=== PATIENT | female | born 1960 | race Caucasian/White ===

== ENCOUNTER → 2016-03-13 | Outpatient (CLI) | payer OTHER ==
[2016-03-13 15:07] VITALS: BP 128/69; PULSE 83; TEMP 97.4; BMI 27.8
--- NOTE | 2016-03-13 16:21 | FL ---
EXAMINATION TYPE: FL barium swallow DATE OF EXAM: 03/13/2016 4:14 PM LAP BANDING LIMITED ESOPHAGRAM: CLINICAL HISTORY: History of lap band placed 7 years ago with dysphasia and vomiting for one week. P atient had failed removed today prior to procedure. TECHNIQUE: Limited esophagram is performed utilizing 2-3 oz of liquid ez paque. A total of 27 second s of fluoroscopic time was utilized during procedure. COMPARISON: CT abdomen and pelvis July 27, 2013. 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 Lap band position is stable from prior CT. Cholecystectomy cl ips are redemonstrated. The patient then drank oral contrast. There is good flow of contrast along the course of the esophagu s. There is good flow of contrast along the course of the lap band, there is no evidence of contrast extravasation to suggest leak. There is no lap band slippage appreciated. IMPRESSION: No evidence of lap band slippage or significant obstruction.
--- NOTE | 2016-03-13 16:31 | P.HPBAR ---
Bariatric H&P - History & Physicial H&P Date: 03/13/16 History & Physicial: Visit/CC: follow up visit Patient initial contact: Initial weight: Initial weight in pounds: Height: 5 ft 3 in Initial BMI: Last weight: Current weight: 71.169 kg Current weight in pounds: 156.90 Current BMI: 27.8 [place] body weight (based on NIH guidelines): 52.163 kg Excess body weight loss: The patient is a 55 year-old F who presents for Bariatric Assessment. The patient presents for lab band follow. She has not been seen in several years. She states that she is at dysphagia and vomiting for approximately one week. Past Medical History Additional Past Medical History / Comment(s): diverticulitis, back pain History of Any Multi-Drug Resistant Organisms: None Reported Past Surgical History: Bariatric Surgery, Cholecystectomy, Hysterectomy Additional Past Surgical History / Comment(s): lap band, chronic back pain - lumbar Past Psychological History: No Psychological Hx Reported Smoking Status: Never smoker Past Alcohol Use History: Occasional Past Drug Use History: None Reported Surgical - Exam Vital Signs Temp Pulse BP 97.4 F L 83 128/69 03/13/16 15:04 03/13/16 15:04 03/13/16 15:04 - General well developed, well nourished, no distress - Eyes PERRL - ENT normal pinna - Neck no masses - Respiratory normal expansion - Cardiovascular Rhythm: regular - Abdomen Abdomen: soft, non tender Bariatric Assessment & Plan Plan: The patient's LAP-BAND was empty. 5 mL remove her band. She'll be scheduled for esophagram Bariatric Checklist Checklist: Plan: Checklist: EGD: 1. Hiatal hernia: 2. H. Pylori: HgbA1c: Vitamin D: Smoking: Never smoker Primary care physician referral: dr nichole Psychiatry clearance: Cardiology clearance: Sleep study: Diet journal: VTE risk score: VTE risk level: Rehab needs at discharge:
== END | disposition home or self-care (01) ==
LOC: BARWHC3 14:05
PROVIDERS: ATTEND Surgery
DX: Z48.815 Encounter for surgical aftercare following surgery on the digestive system (principal); Z98.84 Bariatric surgery status; R13.10 Dysphagia, unspecified; R11.10 Vomiting, unspecified; Z68.27 Body mass index [BMI] 27.0-27.9, adult
CPT/HCPCS: 74220; 99202

== ENCOUNTER → 2016-03-22 | Outpatient (CLI) | payer OTHER | END | disposition home or self-care (01) | LOC: RADMRIMAIN 07:02 | PROVIDERS: ATTEND Physical Medicine & Rehabilitation | DX: Z53.9 Procedure and treatment not carried out, unspecified reason (principal) ==

== ENCOUNTER → 2016-04-03 | Outpatient (CLI) | payer OTHER ==
[2016-04-03 13:07] VITALS: BP 126/71; PULSE 82; RESP 16; TEMP 98.4; BMI 29.2
--- NOTE | 2016-04-03 13:39 | P.HPBAR ---
Bariatric H&P - History & Physicial H&P Date: 04/03/16 History & Physicial: Visit/CC: Band Adj Patient initial contact: Initial weight: 71.016 kg Initial weight in pounds: 156.00 Height: 5 ft 3 in Initial BMI: 27.7 Last weight: Current weight: 74.899 kg Current weight in pounds: 165.00 Current BMI: 29.2 [place] body weight (based on NIH guidelines): 52.163 kg Excess body weight loss: The patient is a 55 year-old F who presents for Bariatric Assessment. Patient is requesting a fill of her LAP-BAND. She had her LAP-BAND empty her last visit. She currently feels hungry. She's gained 9 pounds. Review of Systems Constitutional: Reports as per HPI Past Medical History Additional Past Medical History / Comment(s): diverticulitis, back pain History of Any Multi-Drug Resistant Organisms: None Reported Past Surgical History: Bariatric Surgery, Cholecystectomy, Hysterectomy Additional Past Surgical History / Comment(s): lap band, chronic back pain - lumbar Past Psychological History: No Psychological Hx Reported Smoking Status: Never smoker Past Alcohol Use History: Occasional Past Drug Use History: None Reported Surgical - Exam Vital Signs Temp Pulse Resp BP 98.4 F 82 16 126/71 04/03/16 13:05 04/03/16 13:05 04/03/16 13:05 04/03/16 13:05 - General well developed, no distress - Eyes PERRL - ENT normal pinna - Neck no masses - Respiratory normal expansion - Cardiovascular Rhythm: regular - Abdomen Abdomen: soft, non tender Bariatric Assessment & Plan Plan: The patient's lap band was adjusted. She had 3 mL added to her LAP-BAND. She was able to drink water without difficulty. She will follow-up in one month. Bariatric Checklist Checklist: Plan: Checklist: EGD: 1. Hiatal hernia: 2. H. Pylori: HgbA1c: Vitamin D: Smoking: Never smoker Primary care physician referral: dr nichole Psychiatry clearance: Cardiology clearance: Sleep study: Diet journal: VTE risk score: VTE risk level: Rehab needs at discharge:
== END | disposition home or self-care (01) ==
LOC: BARWHC3 12:33
PROVIDERS: ATTEND Surgery
DX: Z48.815 Encounter for surgical aftercare following surgery on the digestive system (principal); Z68.29 Body mass index [BMI] 29.0-29.9, adult; Z98.84 Bariatric surgery status
CPT/HCPCS: 99212

== ENCOUNTER → 2016-04-10 | Outpatient (CLI) | payer OTHER ==
[2016-04-10 15:13] VITALS: BP 119/70; PULSE 74; RESP 14; TEMP 98.1; BMI 29.2
--- NOTE | 2016-04-10 15:34 | P.HPBAR ---
Bariatric H&P - History & Physicial H&P Date: 04/10/16 History & Physicial: Visit/CC: band fill Patient initial contact: Initial weight: 71.016 kg Initial weight in pounds: 156.56 Height: 5 ft 3 in Initial BMI: 27.7 Last weight: Current weight: 74.752 kg Current weight in pounds: 164.80 Current BMI: 29.2 [place] body weight (based on NIH guidelines): 52.163 kg Excess body weight loss: The patient is a 55 year-old F who presents for Bariatric Assessment. The patient is requesting a fill. She currently feels hungry. She feels limited restriction. Past Medical History Additional Past Medical History / Comment(s): diverticulitis, back pain History of Any Multi-Drug Resistant Organisms: None Reported Past Surgical History: Bariatric Surgery, Cholecystectomy, Hysterectomy Additional Past Surgical History / Comment(s): lap band, chronic back pain - lumbar Past Psychological History: No Psychological Hx Reported Smoking Status: Never smoker Past Alcohol Use History: Occasional Past Drug Use History: None Reported Surgical - Exam Vital Signs Temp Pulse Resp BP 98.1 F 74 14 119/70 04/10/16 15:08 04/10/16 15:08 04/10/16 15:08 04/10/16 15:08 - General well developed, no distress - Eyes PERRL - ENT normal pinna - Neck no masses - Respiratory normal expansion - Cardiovascular Rhythm: regular - Abdomen Abdomen: soft, non tender Bariatric Assessment & Plan Plan: The patient's lap band was adjusted. She had 1 mL added to her LAP-BAND. She' ll follow-up in one month for recheck. Bariatric Checklist Checklist: Plan: Checklist: EGD: 1. Hiatal hernia: 2. H. Pylori: HgbA1c: Vitamin D: Smoking: Never smoker Primary care physician referral: dr nichole Psychiatry clearance: Cardiology clearance: Sleep study: Diet journal: VTE risk score: VTE risk level: Rehab needs at discharge:
== END | disposition home or self-care (01) ==
LOC: BARWHC3 14:10
PROVIDERS: ATTEND Surgery
DX: Z48.815 Encounter for surgical aftercare following surgery on the digestive system (principal); Z98.84 Bariatric surgery status; Z68.29 Body mass index [BMI] 29.0-29.9, adult
CPT/HCPCS: 99212

== ENCOUNTER → 2016-05-01 | Outpatient (CLI) | payer OTHER ==
[2016-05-01 15:14] VITALS: BP 137/65; PULSE 75; RESP 16; TEMP 98; BMI 29.1
--- NOTE | 2016-05-01 15:14 | P.HPBAR ---
Bariatric H&P - History & Physicial H&P Date: 05/01/16 History & Physicial: Visit/CC: Patient initial contact: Initial weight: 71.016 kg Initial weight in pounds: Height: Initial BMI: Last weight: Current weight: Current weight in pounds: Current BMI: [place] body weight (based on NIH guidelines): Excess body weight loss: The patient is a 55 year-old F who presents for Bariatric Assessment. The patient's complaints of hunger. She wishes to have a lap band fill. Past Medical History Additional Past Medical History / Comment(s): diverticulitis, back pain History of Any Multi-Drug Resistant Organisms: None Reported Past Surgical History: Bariatric Surgery, Cholecystectomy, Hysterectomy Additional Past Surgical History / Comment(s): lap band, chronic back pain - lumbar Past Psychological History: No Psychological Hx Reported Smoking Status: Never smoker Past Alcohol Use History: Occasional Past Drug Use History: None Reported Surgical - Exam - General well developed, no distress - Eyes PERRL - ENT normal pinna - Neck no masses Bariatric Assessment & Plan Plan: The patient LAP-BAND was adjusted. She had 0.5 mL added to her LAP-BAND. She was able to water without difficulty. She currently has 4.5 mL in her band. She will follow-up in one month. Bariatric Checklist Checklist: Plan: Checklist: EGD: 1. Hiatal hernia: 2. H. Pylori: HgbA1c: Vitamin D: Smoking: Never smoker Primary care physician referral: dr nichole Psychiatry clearance: Cardiology clearance: Sleep study: Diet journal: VTE risk score: VTE risk level: Rehab needs at discharge:
== END | disposition home or self-care (01) ==
LOC: BARWHC3 13:22
PROVIDERS: ATTEND Surgery
DX: Z48.815 Encounter for surgical aftercare following surgery on the digestive system (principal); Z98.84 Bariatric surgery status
CPT/HCPCS: 99212

== ENCOUNTER → 2016-05-09 | Outpatient (CLI) | payer OTHER ==
--- NOTE | 2016-05-10 13:05 | MM ---
Reason for exam: screening (asymptomatic). Last mammogram was performed 3 years and 11 months ago. History: Patient is postmenopausal. Taking estrogen for 8 years 9 months beginning at age 39. Physical Findings: A clinical breast exam by your physician is recommended on an annual basis and results should be correlated with mammographic findings. MG Screening Mammo w CAD Bilateral CC and MLO view(s) were taken. Prior study comparison: May 29, 2012, CAD bilateral diagnostic mammogram. March 13, 2011, bilateral digital screening mammo w/CAD. There are scattered fibroglandular densities. Finding: There is a subtle 6 mm equal density (isodense), indistinct irregular mass located 10 cm from the nipple in the 2 o'clock upper outer quadrant of the left breast. New finding since May 29, 2012 and March 13, 2011. ASSESSMENT: Incomplete: need additional imaging evaluation, BI-RAD 0 RECOMMENDATION: Special view mammogram of the left breast. If lesion persists on supplemental views, image directed ultrasound is recommended. [facility] will attempt to contact patient to return for supplemental views and ultrasound if indicated.
== END | disposition home or self-care (01) ==
LOC: RADMAMWWP 07:43
PROVIDERS: ATTEND Family Medicine
DX: Z12.31 Encounter for screening mammogram for malignant neoplasm of breast (principal)

== ENCOUNTER → 2016-05-11 | Outpatient (CLI) | payer OTHER ==
--- NOTE | 2016-05-11 09:46 | MM ---
Reason for exam: additional evaluation requested from abnormal screening. Last mammogram was performed less than 1 month ago. History: Patient is postmenopausal. Taking estrogen for 8 years 9 months beginning at age 39. Physical Findings: Nurse did not find any significant physical abnormalities on exam. MG Work Up Mamm w CAD LT CC and MLO view(s) were taken of the left breast. Prior study comparison: May 09, 2016, bilateral MG screening mammo w CAD. May 29, 2012, CAD bilateral diagnostic mammogram. The breast tissue is almost entirely fat. There is no discrete abnormality including area of concern. These results were verbally communicated with the patient and result sheet given to the patient on 05/11/16. ASSESSMENT: Negative, BI-RAD 1 RECOMMENDATION: Return to routine screening mammogram schedule for both breasts.
== END | disposition home or self-care (01) ==
LOC: RADMAMWWP 08:29
PROVIDERS: ATTEND Family Medicine
DX: R92.8 Other abnormal and inconclusive findings on diagnostic imaging of breast (principal)

== ENCOUNTER → 2016-05-29 | Outpatient (CLI) | payer OTHER ==
[2016-05-29 14:40] VITALS: BP 137/73; PULSE 81; TEMP 98; BMI 29.5
--- NOTE | 2016-05-29 15:07 | P.HPBAR ---
Bariatric H&P - History & Physicial H&P Date: 05/29/16 History & Physicial: Visit/CC: lap band fill Patient initial contact: Initial weight: 71.016 kg Initial weight in pounds: 156.56 Height: 5 ft 3 in Initial BMI: 27.7 Last weight: Current weight: 75.75 kg Current weight in pounds: 167.00 Current BMI: 29.5 [place] body weight (based on NIH guidelines): 52.163 kg Excess body weight loss: The patient is a 55 year-old F who presents for Bariatric Assessment. The patient requesting a fill of her LAP-BAND. She currently feels hungry. Past Medical History Additional Past Medical History / Comment(s): diverticulitis, back pain History of Any Multi-Drug Resistant Organisms: None Reported Past Surgical History: Bariatric Surgery, Cholecystectomy, Hysterectomy Additional Past Surgical History / Comment(s): lap band, chronic back pain - lumbar Past Psychological History: No Psychological Hx Reported Smoking Status: Never smoker Past Alcohol Use History: Occasional Past Drug Use History: None Reported Surgical - Exam Vital Signs Temp Pulse BP 98.0 F 81 137/73 05/29/16 14:37 05/29/16 14:37 05/29/16 14:37 - General well developed, no distress - Eyes PERRL - ENT normal pinna - Neck no masses - Cardiovascular Rhythm: regular - Abdomen Abdomen: soft, non tender Bariatric Assessment & Plan Plan: The patient LAP-BAND was adjusted. She had 0.2 mL added to her LAP-BAND. She currently is 4.7 mL in the band. She'll follow-up in one month. Bariatric Checklist Checklist: Plan: Checklist: EGD: 1. Hiatal hernia: 2. H. Pylori: HgbA1c: Vitamin D: Smoking: Never smoker Primary care physician referral: dr nichole Psychiatry clearance: Cardiology clearance: Sleep study: Diet journal: VTE risk score: VTE risk level: Rehab needs at discharge:
== END | disposition home or self-care (01) ==
LOC: BARWHC3 13:42
PROVIDERS: ATTEND Surgery
DX: Z09 Encounter for follow-up examination after completed treatment for conditions other than malignant neoplasm (principal); Z98.84 Bariatric surgery status
CPT/HCPCS: 99212

== ENCOUNTER → 2016-09-18 | Outpatient (CLI) | payer OTHER ==
[2016-09-18 15:30] VITALS: BP 131/78; PULSE 80; RESP 16; TEMP 97.9; BMI 30.7
--- NOTE | 2016-10-13 14:28 | P.HPBAR ---
Bariatric H&P - History & Physicial H&P Date: 09/18/16 History & Physicial: Visit/CC: band adj Patient initial contact: Initial weight: 71.016 kg Initial weight in pounds: 156.56 Height: 5 ft 3 in Initial BMI: 27.7 Last weight: 167 Current weight: 78.642 kg Current weight in pounds: 173.00 Current BMI: 30.7 [place] body weight (based on NIH guidelines): 52.163 kg Excess body weight loss: The patient is a 55 year-old F who presents for Bariatric Assessment. the patient presents today for LAP-BAND follow-up. She is requesting a fill. She currently feels hungry. Past Medical History Additional Past Medical History / Comment(s): diverticulitis, back pain History of Any Multi-Drug Resistant Organisms: None Reported Past Surgical History: Bariatric Surgery, Cholecystectomy, Hysterectomy Additional Past Surgical History / Comment(s): lap band, chronic back pain - lumbar Smoking Status: Never smoker Surgical - Exam Vital Signs Temp Pulse Resp BP 97.9 F 80 16 131/78 09/18/16 15:28 09/18/16 15:28 09/18/16 15:28 09/18/16 15:28 - General well developed, no distress - Eyes PERRL - ENT normal pinna - Respiratory normal expansion - Abdomen Abdomen: soft, non tender Bariatric Assessment & Plan Plan: The patient LAP-BAND was adjusted. 0.2 mL was added to her band. She currently has 4.7 mL in the band. She will follow-up in one month. Bariatric Checklist Checklist: Plan: Checklist: EGD: 1. Hiatal hernia: 2. H. Pylori: HgbA1c: Vitamin D: Smoking: Never smoker Primary care physician referral: dr nichole Psychiatry clearance: Cardiology clearance: Sleep study: Diet journal: VTE risk score: VTE risk level: Rehab needs at discharge:
== END | disposition home or self-care (01) ==
LOC: BARWHC3 14:48
PROVIDERS: ATTEND Surgery
DX: Z48.815 Encounter for surgical aftercare following surgery on the digestive system (principal); Z98.84 Bariatric surgery status
CPT/HCPCS: 99212

== ENCOUNTER → 2017-08-29 | Outpatient (CLI) | payer OTHER ==
--- NOTE | 2017-08-30 11:35 | MM ---
Reason for exam: screening (asymptomatic). Last mammogram was performed 1 year and 4 months ago. History: Patient is postmenopausal. Taking estrogen for 17 years beginning at age 39. Physical Findings: A clinical breast exam by your physician is recommended on an annual basis and results should be correlated with mammographic findings. MG 3D Screening Mammo W/Cad Bilateral CC and MLO view(s) were taken. Prior study comparison: May 11, 2016, left breast MG work up mamm w CAD LT. May 09, 2016, bilateral MG screening mammo w CAD. There are scattered fibroglandular densities. No suspicious abnormality. ASSESSMENT: Negative, BI-RAD 1 RECOMMENDATION: Routine screening mammogram of both breasts in 1 year.
== END | disposition home or self-care (01) ==
LOC: RADMAMWWP 09:17
PROVIDERS: ATTEND Family Medicine
DX: Z12.31 Encounter for screening mammogram for malignant neoplasm of breast (principal)
CPT/HCPCS: 77063; 77067

== ENCOUNTER → 2018-02-11 | Outpatient (CLI) | payer OTHER ==
--- NOTE | 2018-02-12 13:27 | ECHOF ---
Referral Reason:Irregular heartbeat R00.8 MEASUREMENTS -------- HEIGHT: 160.0 cm WEIGHT: 73.9 kg BP: 117/66 RVIDd: 3.1 cm (< 3.3) IVSd: 1.0 cm (0.6 - 1.1) LVIDd: 3.6 cm (3.9 - 5.3) LVPWd: 1.0 cm (0.6 - 1.1) IVSs: 1.5 cm LVIDs: 2.5 cm LVPWs: 1.5 cm LA Diam: 3.0 cm (2.7 - 3.8) LAESV Index (A-L): 18.72 ml/m Ao Diam: 3.0 cm (2.0 - 3.7) AV Cusp: 2.1 cm (1.5 - 2.6) MV EXCURSION: 13.254 mm (> 18.000) MV EF SLOPE: 47 mm/s (70 - 150) EPSS: 0.7 cm MV E [place]: 0.65 m/s MV DecT: 262 ms MV A [place]: 0.69 m/s MV E/A Ratio: 0.95 RAP: 5.00 mmHg RVSP: 19.13 mmHg FINDINGS -------- Sinus rhythm. This was a technically good study. The left ventricular size is normal. Left ventricular wall thickness is normal. Overall left vent ricular systolic function is normal with, an EF between 60 - 65 %. The right ventricle is normal in size. Normal LA size by volume 22+/-6 ml/m2. The right atrium is normal in size. The aortic valve is trileaflet and appears structurally normal. The mitral valve is normal. Mild tricuspid regurgitation present. Right ventricular systolic pressure is normal at < 35 mmHg. Trace/mild (physiologic) pulmonic regurgitation. The aortic root size is normal. Normal inferior vena cava with normal inspiratory collapse consistent with estimated right atrial pre ssure of 5 mmHg. The inferior vena cava is mildly dilated. There is no pericardial effusion. CONCLUSIONS -------- 1. Sinus rhythm. 2. This was a technically good study. 3. The left ventricular size is normal. 4. Left ventricular wall thickness is normal. 5. Overall left ventricular systolic function is normal with, an EF between 60 - 65 %. 6. The right ventricle is normal in size. 7. Normal LA size by volume 22+/-6 ml/m2. 8. The right atrium is normal in size. 9. The aortic valve is trileaflet and appears structurally normal. 10. The mitral valve is normal. 11. Mild tricuspid regurgitation present. 12. Right ventricular systolic pressure is normal at < 35 mmHg. 13. Trace/mild (physiologic) pulmonic regurgitation. 14. The aortic root size is normal. 15. Normal inferior vena cava with normal inspiratory collapse consistent with estimated right atrial pressure of 5 mmHg. 16. The inferior vena cava is mildly dilated. 17. There is no pericardial effusion. STRUCTURAL TEST ENGINEER: Joan Valdovinos RDCS
== END | disposition home or self-care (01) ==
LOC: RADECHMAIN 14:18
PROVIDERS: ATTEND Family Medicine
DX: I07.1 Rheumatic tricuspid insufficiency (principal); I37.1 Nonrheumatic pulmonary valve insufficiency
CPT/HCPCS: 93306

== ENCOUNTER 2018-02-22 11:59 | Emergency (ER) | payer OTHER ==
--- NOTE | 2018-02-22 12:49 | ED ---
General Adult HPI - General Chief complaint: Chest Pain Stated complaint: post op/chest pain/SOB Time Seen by Provider: 02/22/18 12:26 Source: patient, RN notes reviewed, old records reviewed Mode of arrival: ambulatory Limitations: no limitations - History of Present Illness Initial comments: 57-year-old female presenting with central chest pain. Patient describes the pain as constant for the past one week. She is 1 week postop bilateral breast reduction. She was seen by her general surgeon today for adjustment of her gastric band. She reported this symptom of chest pain and was encouraged to present to the emergency department for evaluation. Patient denies any history of CAD. Denies history of DVT or PE. Denies lower extremity pain or swelling. She has had pain in her bilateral breasts status post surgery. Central chest pain has been also present since the time she awoke from anesthesia. It has been constant and unchanged over the past one week. - Related Data Home Medications Medication Instructions Recorded Confirmed Hydrocodone/Acetaminophen [Printer 1 tab PO QID PRN 07/27/13 02/22/18 7.5-325] Multivitamins, Thera [Multivitamin] 1 tab PO DAILY 03/13/16 02/22/18 Hydrocodone/Acetaminophen [Printer 1 tab PO Q4HR PRN 02/22/18 02/22/18 5-325] Allergies Allergy/AdvReac Type Severity Reaction Status Date / Time codeine Allergy Abdominal Verified 02/22/18 12:48 Pain tramadol [From Ultram] AdvReac Nausea Verified 02/22/18 12:48 Review of Systems ROS Statement: Those systems with pertinent positive or pertinent negative responses have been documented in the HPI. ROS Other: All systems not noted in ROS Statement are negative. Past Medical History Additional Past Medical History / Comment(s): diverticulitis, back pain History of Any Multi-Drug Resistant Organisms: None Reported Past Surgical History: Bariatric Surgery, Cholecystectomy, Hysterectomy Additional Past Surgical History / Comment(s): lap band, chronic back pain - lumbar Past Psychological History: No Psychological Hx Reported Smoking Status: Never smoker Past Alcohol Use History: None Reported Past Drug Use History: None Reported General Exam Limitations: no limitations General appearance: alert, in no apparent distress Head exam: Present: atraumatic, normocephalic Eye exam: Present: normal appearance, PERRL ENT exam: Present: normal exam Neck exam: Present: normal inspection. Absent: tenderness Respiratory exam: Present: normal lung sounds bilaterally. Absent: respiratory distress, chest wall tenderness Cardiovascular Exam: Present: regular rate, normal rhythm GI/Abdominal exam: Present: soft. Absent: distended, tenderness Extremities exam: Present: normal inspection, normal capillary refill. Absent: pedal edema, calf tenderness Neurological exam: Present: alert, oriented X3 Psychiatric exam: Present: normal affect, normal mood Skin exam: Present: warm, dry, other (Bilateral breast incisions, no erythema, incision clean dry and intact, left breast has some induration and swelling in the soft tissue on the lateral aspect of the breast adjacent to the incision. No purulent drainage.) Course Vital Signs 02/22/18 02/22/18 02/22/18 12:14 12:35 13:00 Temperature 97.9 F Pulse Rate 89 71 Respiratory 20 18 18 Rate Blood Pressure 142/77 125/78 O2 Sat by Pulse 99 98 Oximetry 02/22/18 02/22/18 02/22/18 14:00 15:00 16:00 Temperature Pulse Rate 70 70 74 Respiratory 20 18 20 Rate Blood Pressure 130/80 107/76 112/71 O2 Sat by Pulse 97 99 96 Oximetry EKG Findings - EKG Comments: EKG Findings:: EKG: Normal sinus rhythm, sinus arrhythmia, low voltage, no acute ischemic changes, rate of 73, [place] interval 140, QRS duration 80, QTC 431 Medical Decision Making - Medical Decision Making 57-year-old female presenting with chest pain. She is 1 week postop bilateral breast reduction and reconstruction. Patient is well-appearing stable vitals. EKG nonischemic. Chest x-ray negative for acute cardiopulmonary disease. Patient has normal CBC, normal CMP, troponin negative which is reassuring as patient's pain is been constant for one week. She does have an elevated d-dimer , this is evaluated by CT angiography which is negative for PE or acute process. There is a 5 x 10 cm fluid collection left breast which is consistent with exam. This represents either hematoma or seroma although there is a small chance this could be infectious. Patient has normal white blood cell count, she is afebrile, more likely hematoma surrounding although the patient is encouraged to follow up with her surgeon in the next 1-2 days for reevaluation. She will monitor fevers at home. Chest pain likely muscular skeletal related to surgery and postoperative pain. Patient is stable for discharge at this time. Will follow-up with primary care physician, return with worsening or changing symptoms. - Lab Data Result diagrams: 02/22/18 13:00 02/22/18 13:00 Lab Results 02/22/18 02/22/18 02/22/18 Range/Units 13:00 13:00 13:00 WBC 6.5 (3.8-10.6) k/uL RBC 3.84 (3.80-5.40) m/uL Hgb 11.8 (11.4-16.0) gm/dL Hct 35.5 (34.0-46.0) % MCV 92.4 (80.0-100.0) fL MCH 30.7 (25.0-35.0) pg MCHC 33.3 (31.0-37.0) g/dL RDW 13.4 (11.5-15.5) % Plt Count 401 (150-450) k/uL Neutrophils % 65 % Lymphocytes % 25 % Monocytes % 6 % Eosinophils % 1 % Basophils % 1 % Neutrophils # 4.2 (1.3-7.7) k/uL Lymphocytes # 1.6 (1.0-4.8) k/uL Monocytes # 0.4 (0-1.0) k/uL Eosinophils # 0.1 (0-0.7) k/uL Basophils # 0.0 (0-0.2) k/uL PT (9.0-12.0) sec INR (<1.2) APTT (22.0-30.0) sec D-Dimer (<0.60) mg/L FEU Sodium 138 (137-145) mmol/L Potassium 4.9 (3.5-5.1) mmol/L Chloride 106 (98-107) mmol/L Carbon Dioxide 27 (22-30) mmol/L Anion Gap 5 mmol/L BUN 9 (7-17) mg/dL Creatinine 0.59 (0.52-1.04) mg/dL Est GFR (CKD-EPI)AfAm >90 (>60 ml/min/1.73 sqM) Est GFR (CKD-EPI)NonAf >90 (>60 ml/min/1.73 sqM) Glucose 89 (74-99) mg/dL Calcium 9.5 (8.4-10.2) mg/dL Magnesium 1.8 (1.6-2.3) mg/dL Total Bilirubin 0.6 (0.2-1.3) mg/dL AST 23 (14-36) U/L ALT 22 (9-52) U/L Alkaline Phosphatase 36 L (38-126) U/L Total Creatine Kinase 40 (30-135) U/L CK-MB (CK-2) 0.3 (0.0-2.4) ng/mL CK-MB (CK-2) Rel Index 0.8 Troponin I <0.012 (0.000-0.034) ng/mL Total Protein 7.3 (6.3-8.2) g/dL Albumin 4.3 (3.5-5.0) g/dL 02/22/18 Range/Units 13:00 WBC (3.8-10.6) k/uL RBC (3.80-5.40) m/uL Hgb (11.4-16.0) gm/dL Hct (34.0-46.0) % MCV (80.0-100.0) fL MCH (25.0-35.0) pg MCHC (31.0-37.0) g/dL RDW (11.5-15.5) % Plt Count (150-450) k/uL Neutrophils % % Lymphocytes % % Monocytes % % Eosinophils % % Basophils % % Neutrophils # (1.3-7.7) k/uL Lymphocytes # (1.0-4.8) k/uL Monocytes # (0-1.0) k/uL Eosinophils # (0-0.7) k/uL Basophils # (0-0.2) k/uL PT 9.6 (9.0-12.0) sec INR 0.9 (<1.2) APTT 25.8 (22.0-30.0) sec D-Dimer 1.22 H (<0.60) mg/L FEU Sodium (137-145) mmol/L Potassium (3.5-5.1) mmol/L Chloride (98-107) mmol/L Carbon Dioxide (22-30) mmol/L Anion Gap mmol/L BUN (7-17) mg/dL Creatinine (0.52-1.04) mg/dL Est GFR (CKD-EPI)AfAm (>60 ml/min/1.73 sqM) Est GFR (CKD-EPI)NonAf (>60 ml/min/1.73 sqM) Glucose (74-99) mg/dL Calcium (8.4-10.2) mg/dL Magnesium (1.6-2.3) mg/dL Total Bilirubin (0.2-1.3) mg/dL AST (14-36) U/L ALT (9-52) U/L Alkaline Phosphatase (38-126) U/L Total Creatine Kinase (30-135) U/L CK-MB (CK-2) (0.0-2.4) ng/mL CK-MB (CK-2) Rel Index Troponin I (0.000-0.034) ng/mL Total Protein (6.3-8.2) g/dL Albumin (3.5-5.0) g/dL Disposition Clinical Impression: Seroma of breast, Atypical chest pain, Costalchondritis Disposition: HOME SELF-CARE Condition: Good Instructions: Chest Pain (ED), Seroma (DC) Additional Instructions: Please follow up with your surgeon for reevaluation of left breast swelling. Is patient prescribed a controlled substance at d/c from ED?: No Referrals: Sage Shine MD [Primary Care Provider] - 1-2 days Time of Disposition: 16:38
[2018-02-22 13:28] LABS: Basophils % (A) 1 %; Eosinophils # (A) 0.1 k/uL (0-0.7); Eosinophils % (A) 1 %; HCT 35.5 % (34.0-46.0); HGB 11.8 gm/dL (11.4-16.0); Lymphocytes # (A) 1.6 k/uL (1.0-4.8); Lymphocytes % (A) 25 %; MCH 30.7 pg (25.0-35.0); MCHC 33.3 g/dL (31.0-37.0); MCV 92.4 fL (80.0-100.0); Mean Platelet Volume 7.2; Monocytes # (A) 0.4 k/uL (0-1.0); Monocytes % (A) 6 %; Neutrophils # (A) 4.2 k/uL (1.3-7.7); Neutrophils % (A) 65 %; Platelet Count 401 k/uL (150-450); RBC 3.84 m/uL (3.80-5.40); RDW 13.4 % (11.5-15.5); WBC 6.5 k/uL (3.8-10.6)
[2018-02-22 13:35] LABS: ALT 22 U/L (9-52); AST 23 U/L (14-36); Albumin 4.3 g/dL (3.5-5.0); Alkaline Phosphatase 36 U/L (38-126); Anion Gap 5 mmol/L; Blood Urea Nitrogen 9 mg/dL (7-17); Calcium 9.5 mg/dL (8.4-10.2); Carbon Dioxide 27 mmol/L (22-30); Chloride 106 mmol/L (98-107); Glucose 89 mg/dL (74-99); Magnesium 1.8 mg/dL (1.6-2.3); Potassium 4.9 mmol/L (3.5-5.1); Sodium 138 mmol/L (137-145); Total Bilirubin 0.6 mg/dL (0.2-1.3); Total Protein 7.3 g/dL (6.3-8.2)
--- NOTE | 2018-02-22 13:37 | XR ---
EXAMINATION TYPE: XR chest 2V DATE OF EXAM: 02/22/2018 COMPARISON: None INDICATION: Chest pain TECHNIQUE: Frontal and lateral views of the chest are obtained. FINDINGS: The heart size is normal. The pulmonary vasculature is normal. The lungs are clear. LAP-BAND is present. Osseous structures as visualized appear unremarkable. IMPRESSION: 1. 1. No acute pulmonary process. 2. No suspicious acute radiographic abnormality to account for chest pain.
[2018-02-22 13:42] LABS: INR 0.9 (<1.2); Partial Thromboplastin Time 25.8 sec (22.0-30.0); Prothrombin Time 9.6 sec (9.0-12.0)
[2018-02-22 13:47] LABS: Creatine Kinase 40 U/L (30-135)
[2018-02-22 13:59] LABS: Creatine Kinase MB 0.3 ng/mL (0.0-2.4); Troponin I <0.012 ng/mL (0.000-0.034)
[2018-02-22 14:19] LABS: D-Dimer 1.22 mg/L FEU (<0.60)
--- NOTE | 2018-02-22 16:08 | CT ---
EXAMINATION TYPE: CT angio chest DATE OF EXAM: 02/22/2018 COMPARISON: HISTORY: RECENT BREAST LIFT SX PT IS C/O PAIN CT DLP: 390.9 mGycm CONTRAST: CT chest with contrast and 3D reconstruction with MIP imaging is performed with IV Contrast, patient injected with 80 mL of Isovue 370. Contrast-enhanced CT of the chest was performed through the course of the pulmonary arteries with tracy g and mediastinal window settings submitted. 3D reconstruction with MIP imaging was also performed. PULMONARY ARTERIES: The pulmonary arteries and their major tributaries are patent. I do not see favian dence for sizable filling defect to suggest pulmonary embolic process. LUNGS: The lungs are clear and free of infiltrate. No evidence for atelectasis. No pulmonary nodule or mass is detected. No pleural effusion. MEDIASTINUM: Thoracic aorta is of normal caliber,however, evaluation is limited given timing of the contrast bolus. If there is concern for thoracic aortic pathology consider CARTER. Correlate clinicall y . The heart is not enlarged. No evidence for mediastinal mass. No mediastinal lymph nodes greater than 1cm. HILAR STRUCTURES: No evidence for mass. No hilar lymph nodes greater than 1 cm. UPPER ABDOMEN: No significant abnormality is seen. Other: Postoperative changes are seen about the breast. Within the posterior lateral aspect of the le ft breast there is a large collection noted with internal air which measures 10.6 x 4.7 cm. This may reflect hematoma or seroma. Infected collection is not excluded. IMPRESSION: 1. No evidence for Pulmonary embolism at this time. 2. Postoperative changes are seen about the breast. Within the posterior lateral aspect of the left b reast there is a large collection noted with internal air which measures 10.6 x 4.7 cm. This may refl ect hematoma or seroma. Infected collection is not excluded
[2018-02-22 16:13] VITALS: RESP 20
[2018-02-22 16:45] VITALS: BP 118/56; PULSE 71; TEMP 98.3
== END 2018-02-22 16:44 | disposition home or self-care (01) ==
LOC: EC 11:59
DX: M94.0 Chondrocostal junction syndrome [Tietze] (principal); L76.34 Postprocedural seroma of skin and subcutaneous tissue following other procedure; R79.1 Abnormal coagulation profile; Z88.5 Allergy status to narcotic agent; Z98.890 Other specified postprocedural states
CPT/HCPCS: 36415; 93005; 85379; 80053; 82550; 82553; 83735; 84484; 85025; 85610; 85730; 71046; 71275; 99285; Q9967

== ENCOUNTER → 2018-02-22 | Outpatient (CLI) | payer OTHER ==
[2018-02-22 10:44] VITALS: BP 113/82; PULSE 83; TEMP 98.1; BMI 28.5
--- NOTE | 2018-02-22 15:38 | P.HPBAR ---
Bariatric H&P - History & Physicial H&P Date: 02/22/18 History & Physicial: Visit/CC: lap band follow up Patient initial contact: Initial weight: 71.016 kg Initial weight in pounds: 156.56 Height: 5 ft 3 in Initial BMI: 27.7 Last weight: Current weight: 73.21 kg Current weight in pounds: 161.40 Current BMI: 28.5 [place] body weight (based on NIH guidelines): 52.163 kg Excess body weight loss: The patient is a 57 year-old F who presents for Bariatric Assessment. Patient presents due to dysphagia. She had a recent breast reduction. She also has complaints of chest pain. States it hurts when she breathes feels a heavy pain middle of her chest. Past Medical History Additional Past Medical History / Comment(s): diverticulitis, back pain History of Any Multi-Drug Resistant Organisms: None Reported Past Surgical History: Bariatric Surgery, Cholecystectomy, Hysterectomy Additional Past Surgical History / Comment(s): lap band, chronic back pain - lumbar Smoking Status: Never smoker Surgical - Exam Vital Signs Temp Pulse BP 98.1 F 83 113/82 02/22/18 10:41 02/22/18 10:41 02/22/18 10:41 - General well developed, no distress - Eyes PERRL - ENT normal pinna - Neck no masses - Abdomen Abdomen: soft, non tender Bariatric Assessment & Plan Plan: Patient LAP-BAND was empty. She had 5.2 mL refer band. She'll follow-up in 4 weeks. Patient was sent to the emergency room due to her chest pain for further workup. Bariatric Checklist Checklist: Plan: Checklist: EGD: 1. Hiatal hernia: 2. H. Pylori: HgbA1c: Vitamin D: Smoking: Never smoker Primary care physician referral: dr nichole Psychiatry clearance: Cardiology clearance: Sleep study: Diet journal: VTE risk score: VTE risk level: Rehab needs at discharge:
== END ==
LOC: BARWHC3 10:02
PROVIDERS: ATTEND Surgery
DX: Z48.815 Encounter for surgical aftercare following surgery on the digestive system (principal); R13.10 Dysphagia, unspecified; R07.9 Chest pain, unspecified; Z41.1 Encounter for cosmetic surgery; Z98.84 Bariatric surgery status; Z90.49 Acquired absence of other specified parts of digestive tract; Z90.710 Acquired absence of both cervix and uterus
CPT/HCPCS: 99212

== ENCOUNTER → 2018-04-01 | Outpatient (CLI) | payer OTHER ==
[2018-04-01 13:42] VITALS: BP 137/82; PULSE 80; TEMP 98.2; BMI 29.7
--- NOTE | 2018-04-01 14:38 | P.HPBAR ---
Bariatric H&P - History & Physicial H&P Date: 04/01/18 History & Physicial: Visit/CC: band fill Patient initial contact: Initial weight: 71.016 kg Initial weight in pounds: 156.56 Height: 5 ft 3 in Initial BMI: 27.7 Last weight: Current weight: 76.204 kg Current weight in pounds: 168.00 Current BMI: 29.7 [place] body weight (based on NIH guidelines): 76.204 kg Excess body weight loss: The patient is a 57 year-old F who presents for Bariatric Assessment. Patient presents today for LAP-BAND adjustment. She currently feels hungry. She is requesting a fill of her band. Past Medical History Additional Past Medical History / Comment(s): diverticulitis, back pain History of Any Multi-Drug Resistant Organisms: None Reported Past Surgical History: Bariatric Surgery, Cholecystectomy, Hysterectomy Additional Past Surgical History / Comment(s): lap band, chronic back pain - lumbar, bilateral breast augmentation/lift (February 2018) Past Psychological History: No Psychological Hx Reported Smoking Status: Never smoker Past Alcohol Use History: None Reported Past Drug Use History: None Reported Surgical - Exam Vital Signs Temp Pulse BP 98.2 F 80 137/82 04/01/18 13:31 04/01/18 13:31 04/01/18 13:31 - General well developed, well nourished, no distress - Eyes PERRL - ENT normal pinna - Neck no masses - Respiratory normal expansion - Abdomen Abdomen: soft, non tender Bariatric Assessment & Plan Plan: Patient's lap band was adjusted. She had 4 mL added to the band. She is drink water without difficulty. She will follow-up as needed. Bariatric Checklist Checklist: Plan: Checklist: EGD: 1. Hiatal hernia: 2. H. Pylori: HgbA1c: Vitamin D: Smoking: Never smoker Primary care physician referral: dr nichole Psychiatry clearance: Cardiology clearance: Sleep study: Diet journal: VTE risk score: VTE risk level: Rehab needs at discharge:
== END ==
LOC: BARWHC3 12:57
PROVIDERS: ATTEND Surgery
DX: Z48.815 Encounter for surgical aftercare following surgery on the digestive system (principal); Z98.84 Bariatric surgery status; Z90.49 Acquired absence of other specified parts of digestive tract; Z90.710 Acquired absence of both cervix and uterus
CPT/HCPCS: 99212

== ENCOUNTER → 2018-06-03 | Outpatient (CLI) | payer OTHER ==
[2018-06-03 14:35] VITALS: BP 128/87; PULSE 80; TEMP 97.9; BMI 30.4
--- NOTE | 2018-06-04 09:55 | P.HPBAR ---
Bariatric H&P - History & Physicial H&P Date: 06/03/18 History & Physicial: Visit/CC: band fill (2 pound gain since last visit 6 wks ago) Patient initial contact: Initial weight: 71.016 kg Initial weight in pounds: 156.56 Height: 5 ft 3 in Initial BMI: 27.7 Last weight: Current weight: 77.973 kg Current weight in pounds: 171.90 Current BMI: 30.4 [place] body weight (based on NIH guidelines): 52.163 kg Excess body weight loss: The patient is a 57 year-old F who presents for Bariatric Assessment. Patient presents today for lab band follow. She is requesting fluid to be removed from her band. She's had some mild GERD. Past Medical History Additional Past Medical History / Comment(s): diverticulitis, back pain History of Any Multi-Drug Resistant Organisms: None Reported Past Surgical History: Bariatric Surgery, Cholecystectomy, Hysterectomy Additional Past Surgical History / Comment(s): lap band, chronic back pain - lumbar, bilateral breast augmentation/lift (February 2018) Smoking Status: Never smoker Surgical - Exam Vital Signs Temp Pulse BP 97.9 F 80 128/87 06/03/18 14:33 06/03/18 14:33 06/03/18 14:33 - General well developed, well nourished, no distress - Eyes PERRL - ENT normal pinna - Neck no masses - Respiratory normal expansion - Cardiovascular Rhythm: regular - Abdomen Abdomen: soft, non tender Bariatric Assessment & Plan Plan: Mild GERD. 1 mL was removed from her band. She will follow-up in 4 weeks. Bariatric Checklist Checklist: Plan: Checklist: EGD: 1. Hiatal hernia: 2. H. Pylori: HgbA1c: Vitamin D: Smoking: Never smoker Primary care physician referral: dr nichole Psychiatry clearance: Cardiology clearance: Sleep study: Diet journal: VTE risk score: VTE risk level: Rehab needs at discharge:
== END | disposition home or self-care (01) ==
LOC: BARWHC3 13:37
PROVIDERS: ATTEND Surgery
DX: Z46.51 Encounter for fitting and adjustment of gastric lap band (principal); K21.9 Gastro-esophageal reflux disease without esophagitis; Z98.84 Bariatric surgery status; Z90.49 Acquired absence of other specified parts of digestive tract
CPT/HCPCS: 99212

== ENCOUNTER → 2018-07-15 | Outpatient (CLI) | payer OTHER ==
[2018-07-15 13:10] VITALS: BP 136/76; PULSE 65; RESP 16; TEMP 98.3; BMI 31.4
--- NOTE | 2018-07-22 14:33 | P.HPBAR ---
Bariatric H&P - History & Physicial H&P Date: 07/15/18 History & Physicial: Visit/CC: requesting lap band fill Patient initial contact: Initial weight: 71.016 kg Initial weight in pounds: 156.56 Height: 5 ft 3 in Initial BMI: 27.7 Last weight: Current weight: 80.558 kg Current weight in pounds: 177.60 Current BMI: 31.4 [place] body weight (based on NIH guidelines): 52.163 kg Excess body weight loss: The patient is a 57 year-old F who presents for Bariatric Assessment. Patient presents today for LAP-BAND adjustment. She is requesting a fill. She currently feels hungry. Past Medical History Additional Past Medical History / Comment(s): diverticulitis, back pain History of Any Multi-Drug Resistant Organisms: None Reported Past Surgical History: Bariatric Surgery, Cholecystectomy, Hysterectomy Additional Past Surgical History / Comment(s): lap band, chronic back pain - lumbar, bilateral breast augmentation/lift (February 2018) Past Psychological History: No Psychological Hx Reported Smoking Status: Never smoker Past Alcohol Use History: None Reported Past Drug Use History: None Reported Surgical - Exam Vital Signs Temp Pulse Resp BP Pulse Ox 98.3 F 65 16 136/76 99 07/15/18 13:01 07/15/18 13:01 07/15/18 13:01 07/15/18 13:01 07/15/18 13:01 - General well developed, well nourished, no distress - Eyes PERRL - ENT normal pinna - Neck no masses - Respiratory normal expansion - Cardiovascular Rhythm: regular - Abdomen Abdomen: soft, non tender Bariatric Assessment & Plan Plan: Patient's lap band was adjusted. She had 0.5 mL added to her band. She currently is 4.5 mL in her band. She will follow-up in 4 weeks. Bariatric Checklist Checklist: Plan: Checklist: EGD: 1. Hiatal hernia: 2. H. Pylori: HgbA1c: Vitamin D: Smoking: Never smoker Primary care physician referral: dr nichole Psychiatry clearance: Cardiology clearance: Sleep study: Diet journal: VTE risk score: VTE risk level: Rehab needs at discharge:
== END | disposition home or self-care (01) ==
LOC: BARWHC3 12:38
PROVIDERS: ATTEND Surgery
DX: Z46.51 Encounter for fitting and adjustment of gastric lap band (principal)
CPT/HCPCS: 99212

== ENCOUNTER → 2018-08-05 | Outpatient (CLI) | payer OTHER ==
[2018-08-05 13:42] VITALS: BP 121/78; PULSE 68; RESP 16; TEMP 98.2; BMI 31.0
--- NOTE | 2018-08-23 13:46 | P.HPBAR ---
Bariatric H&P - History & Physicial H&P Date: 08/05/18 History & Physicial: Visit/CC: band fill Patient initial contact: Initial weight: 71.016 kg Initial weight in pounds: 156.56 Height: 5 ft 3 in Initial BMI: 27.7 Last weight: Current weight: 79.549 kg Current weight in pounds: 175.38 Current BMI: 31.0 [place] body weight (based on NIH guidelines): 52.163 kg Excess body weight loss: The patient is a 57 year-old F who presents for Bariatric Assessment. Patient presents today for her LAP-BAND adjustment. She currently feels hungry. She is requesting a fill of her band. Past Medical History Additional Past Medical History / Comment(s): diverticulitis, back pain History of Any Multi-Drug Resistant Organisms: None Reported Past Surgical History: Bariatric Surgery, Cholecystectomy, Hysterectomy Additional Past Surgical History / Comment(s): lap band, chronic back pain - lumbar, bilateral breast augmentation/lift (February 2018) Smoking Status: Never smoker Surgical - Exam Vital Signs Temp Pulse Resp BP 98.2 F 68 16 121/78 08/05/18 13:40 08/05/18 13:40 08/05/18 13:40 08/05/18 13:40 - General well developed, well nourished, no distress - Abdomen Abdomen: soft, non tender Bariatric Assessment & Plan Plan: Patient's lap band was adjusted. She had right cc added to her band. She was able require without difficulty. She'll follow-up in 4 weeks. Bariatric Checklist Checklist: Plan: Checklist: EGD: 1. Hiatal hernia: 2. H. Pylori: HgbA1c: Vitamin D: Smoking: Never smoker Primary care physician referral: dr nichole Psychiatry clearance: Cardiology clearance: Sleep study: Diet journal: VTE risk score: VTE risk level: Rehab needs at discharge:
== END | disposition home or self-care (01) ==
LOC: BARWHC3 12:42
PROVIDERS: ATTEND Surgery
DX: Z46.51 Encounter for fitting and adjustment of gastric lap band (principal); Z98.84 Bariatric surgery status
CPT/HCPCS: 99212

== ENCOUNTER → 2018-09-23 | Outpatient (CLI) | payer OTHER ==
[2018-09-23 13:51] VITALS: BP 125/79; PULSE 60; TEMP 98.2; BMI 31.1
--- NOTE | 2018-09-23 14:14 | P.HPBAR ---
Bariatric H&P - History & Physicial H&P Date: 09/23/18 History & Physicial: Visit/CC: band fill Patient initial contact: Initial weight: 71.016 kg Initial weight in pounds: 156.56 Height: 5 ft 3 in Initial BMI: 27.7 Last weight: Current weight: 79.605 kg Current weight in pounds: 175.50 Current BMI: 31.1 [place] body weight (based on NIH guidelines): 52.163 kg Excess body weight loss: The patient is a 57 year-old F who presents for Bariatric Assessment. Patient presents today for LAP-BAND adjustment. She currently feels hungry. She is requesting a fill. Past Medical History Additional Past Medical History / Comment(s): diverticulitis, back pain History of Any Multi-Drug Resistant Organisms: None Reported Past Surgical History: Bariatric Surgery, Cholecystectomy, Hysterectomy Additional Past Surgical History / Comment(s): lap band, chronic back pain - lumbar, bilateral breast augmentation/lift (February 2018) Smoking Status: Never smoker Surgical - Exam Vital Signs Temp Pulse BP 98.2 F 60 125/79 09/23/18 13:46 09/23/18 13:46 09/23/18 13:46 - General well developed, well nourished, no distress - Eyes PERRL - ENT normal pinna - Neck no masses - Respiratory normal expansion - Cardiovascular Rhythm: regular - Abdomen Abdomen: soft, non tender Bariatric Assessment & Plan Plan: Patient's lap band was adjusted. She had 0.4 mL added to the band. She currently has 5.4 mL in the band. She'll follow-up in 4 weeks. Bariatric Checklist Checklist: Plan: Checklist: EGD: 1. Hiatal hernia: 2. H. Pylori: HgbA1c: Vitamin D: Smoking: Never smoker Primary care physician referral: dr nichole Psychiatry clearance: Cardiology clearance: Sleep study: Diet journal: VTE risk score: VTE risk level: Rehab needs at discharge:
== END | disposition home or self-care (01) ==
LOC: BARWHC3 13:20
PROVIDERS: ATTEND Surgery
DX: Z46.51 Encounter for fitting and adjustment of gastric lap band (principal)
CPT/HCPCS: 99212

== ENCOUNTER 2019-07-15 20:46 | Emergency (ER) | payer OTHER ==
[2019-07-15 21:02] VITALS: BP 126/79; PULSE 85; RESP 16; TEMP 98.8
--- NOTE | 2019-07-15 21:36 | XR ---
EXAMINATION TYPE: XR foot complete LT DATE OF EXAM: 07/15/2019 COMPARISON: NONE HISTORY: Pain TECHNIQUE: 3 views FINDINGS: There is plantar calcaneal spurring. Metatarsals are intact. I see no fracture nor dislocat ion. Joint spaces are normal. There is no sign of a foreign body. IMPRESSION: No fracture seen.
--- NOTE | 2019-07-15 21:39 | ED ---
Lower Extremity Injury HPI - General Chief Complaint: Extremity Injury, Lower Stated Complaint: L Foot Injury Time Seen by Provider: 07/15/19 21:07 Source: patient Mode of arrival: wheelchair Limitations: no limitations - History of Present Illness Initial Comments: 58 year-old female patient presents to the emergency department today for evaluation of injury to the left foot. Patient states that she was outside when the wind blew over a heavy table which landed on her foot. Patient states that she has swelling and bruising to the foot. States that she has increased pain with weightbearing over the area. She is concerned she may have a fracture. She denies any other injuries. Denies any ankle pain. Denies taking any medication for her symptoms.Patient denies any headache, neck pain, back pain, chest pain, shortness of breath, dizziness, weakness, abdominal pain, nausea, vomiting, or difficulties with bowel movements or urination. - Related Data Home Medications Medication Instructions Recorded Confirmed Multivitamins, Thera [Multivitamin] 1 tab PO DAILY 03/13/16 09/23/18 Estradiol [Estradiol 0.1 MG Patch] 1 patch TRANSDERM [id number] 07/15/18 09/23/18 HYDROcodone/APAP 7.5-325MG [[place] 1 tab PO TID PRN 07/15/18 09/23/18 7.5-325] Allergies Allergy/AdvReac Type Severity Reaction Status Date / Time codeine Allergy Abdominal Verified 07/15/19 21:01 Pain tramadol [From Ultram] AdvReac Nausea Verified 07/15/19 21:01 Review of Systems ROS Statement: Those systems with pertinent positive or pertinent negative responses have been documented in the HPI. ROS Other: All systems not noted in ROS Statement are negative. Past Medical History Additional Past Medical History / Comment(s): diverticulitis, back pain, History of Any Multi-Drug Resistant Organisms: None Reported Past Surgical History: Bariatric Surgery, Cholecystectomy, Hysterectomy Additional Past Surgical History / Comment(s): lap band, chronic back pain - lumbar, bilateral breast augmentation/lift (February 2018) Past Psychological History: No Psychological Hx Reported Smoking Status: Never smoker Past Alcohol Use History: None Reported Past Drug Use History: None Reported General Exam Limitations: no limitations General appearance: alert, in no apparent distress, other (This is a well- developed, well-nourished adult female patient in no acute distress. Vital signs upon presentation are temperature 98.8F, pulse 85, respirations 16, blood pressure 126/79, pulse ox 100% on room air.) Respiratory exam: Present: normal lung sounds bilaterally. Absent: respiratory distress, wheezes, rales, rhonchi, stridor Cardiovascular Exam: Present: regular rate, normal rhythm, normal heart sounds. Absent: systolic murmur, diastolic murmur, rubs, gallop, clicks Extremities exam: Present: full ROM, tenderness (There is tenderness noted over the first tarsal bone, MTP joint, and great toe on the left foot. ), normal capillary refill, other (There is ecchymosis and soft tissue swelling noted over the first tarsal, MTP joint, and great toe of the left foot. There is superficial abrasion over the left first MTP joint. Pedal and posttibial pulses are 2+ and equal bilaterally. Skin is otherwise pink, warm, and dry. Cap refills less than 3 seconds.). Absent: normal inspection, pedal edema, joint swelling, calf tenderness Neurological exam: Present: alert, oriented X3, CN II-XII intact Psychiatric exam: Present: normal affect, normal mood Skin exam: Present: warm, dry, intact, normal color. Absent: rash Course Vital Signs 07/15/19 21:00 Temperature 98.8 F Pulse Rate 85 Respiratory 16 Rate Blood Pressure 126/79 O2 Sat by Pulse 100 Oximetry Medical Decision Making - Medical Decision Making 58-year-old female patient presents to the emergency department today for evaluation of left foot pain after a heavy table fell on top of it. Physical examination did reveal small abrasion to the dorsal left foot over the first MTP joint. There is also ecchymosis and soft tissue swelling to this area. X-ray of the foot was negative. We did discuss contusion as a cause for her symptoms. She believes her tetanus is up to date and will contact her physician to confirm in the morning. She'll be placed in a post op shoe for stability. She does have [place] at home for pain control. She is educated regarding rest, ice, elevation. She is instructed to follow-up with her primary care physician for recheck in 1-2 days. She is instructed to have repeat x-rays performed in 7-10 days if pain symptoms persist. Return parameters were discussed in detail. She verbalizes understanding and agrees with this plan. - Radiology Data Radiology results: report reviewed, image reviewed 3 views of the left foot are obtained. Report was reviewed in its entirety. Impression by Dr. Beebe shows no fracture seen. Disposition Clinical Impression: Contusion of left foot Disposition: HOME SELF-CARE Condition: Good Instructions (If sedation given, give patient instructions): Foot Contusion (ED) Additional Instructions: Keep wound clean and dry. Apply ice, elevate, and rest the foot as much as possible. Call your primary care physician in the morning to inquire about your tetanus vaccine. Follow-up with your primary care physician for recheck in 1-2 days. Have repeat xrays performed in 7-10 days if pain symptoms persist. Return to the emergency department for any new, worsening, or concerning symptoms. Is patient prescribed a controlled substance at d/c from ED?: No Referrals: Sage Shine MD [Primary Care Provider] - 1-2 days Time of Disposition: 21:39
== END 2019-07-15 21:53 | disposition home or self-care (01) ==
LOC: EC 20:46
DX: S90.32XA Contusion of left foot, initial encounter (principal); Z88.5 Allergy status to narcotic agent; W20.8XXA Other cause of strike by thrown, projected or falling object, initial encounter
CPT/HCPCS: 99283

== ENCOUNTER → 2019-11-13 | Outpatient (CLI) | payer OTHER ==
--- NOTE | 2019-11-13 16:05 | XR ---
EXAMINATION TYPE: XR chest 2V DATE OF EXAM: 11/13/2019 COMPARISON: 02/22/2018 INDICATION: Left-sided chest pain TECHNIQUE: Frontal and lateral views of the chest are obtained. FINDINGS: The heart size is normal. The pulmonary vasculature is normal. Some mild plate atelectasis at the left base. LAP-BAND is present. IMPRESSION: 1. Mild plate atelectasis left diaphragm
== END | disposition home or self-care (01) ==
LOC: RADXRMAIN 15:33
PROVIDERS: ATTEND Family Medicine
DX: J98.11 Atelectasis (principal)
CPT/HCPCS: 71046

== ENCOUNTER 2023-08-26 12:47 | Emergency (ER) | payer BC, OTHER ==
[2023-08-26 12:51] VITALS: RESP 18; TEMP 97.7
--- NOTE | 2023-08-26 13:34 | ED ---
General Adult HPI - General Chief complaint: Recheck/Abnormal Lab/Rx Stated complaint: L arm/neck pain, Time Seen by Provider: 08/26/23 12:57 Source: patient, RN notes reviewed, old records reviewed Mode of arrival: ambulatory Limitations: no limitations - History of Present Illness Initial comments: 62-year-old female who is presenting to the emergency department with concern she may have had a heart attack. Patient states that yesterday she had several brief episodes of left arm pain. No chest pain. No dyspnea. She has no prior history of CAD and states she is quite active. She runs daily. She had these brief episodes of left upper extremity pain lasting several minutes. She was concerned that this could be related to her heart and is requesting blood testing. She does have family history of coronary artery disease. - Related Data Home Medications Medication Instructions Recorded Confirmed Multivitamins, Thera [Multivitamin] 1 tab PO DAILY 03/13/16 04/25/21 HYDROcodone/APAP 7.5-325MG [[place] 1 tab PO TID PRN 07/15/18 04/25/21 7.5-325] estradioL [Estradiol 0.1 MG Patch] 1 patch TRANSDERM [id number] 07/15/18 04/25/21 Biotin 5 mg PO DAILY 04/25/21 04/25/21 Cholecalciferol [Vitamin D3 (10 10 mcg PO DAILY 04/25/21 04/25/21 Mcg = 400 Iu)] Allergies Allergy/AdvReac Type Severity Reaction Status Date / Time codeine Allergy Abdominal Verified 08/26/23 12:51 Pain tramadol [From Ultram] AdvReac Nausea Verified 08/26/23 12:51 Review of Systems ROS Statement: Those systems with pertinent positive or pertinent negative responses have been documented in the HPI. ROS Other: All systems not noted in ROS Statement are negative. Past Medical History Additional Past Medical History / Comment(s): diverticulitis, back pain, History of Any Multi-Drug Resistant Organisms: None Reported Past Surgical History: Bariatric Surgery, Cholecystectomy, Hysterectomy Additional Past Surgical History / Comment(s): lap band, chronic back pain - lumbar, bilateral breast augmentation/lift (February 2018) Past Psychological History: No Psychological Hx Reported Smoking Status: Former smoker Past Alcohol Use History: None Reported Past Drug Use History: None Reported General Exam Limitations: no limitations General appearance: alert, in no apparent distress Head exam: Present: atraumatic, normocephalic Eye exam: Present: normal appearance, PERRL ENT exam: Present: normal exam Neck exam: Present: normal inspection. Absent: tenderness, meningismus Respiratory exam: Present: normal lung sounds bilaterally. Absent: respiratory distress, wheezes Cardiovascular Exam: Present: regular rate, normal rhythm GI/Abdominal exam: Present: soft. Absent: distended, tenderness Extremities exam: Present: normal inspection, normal capillary refill. Absent: pedal edema, calf tenderness Neurological exam: Present: alert, oriented X3, CN II-XII intact. Absent: motor sensory deficit Psychiatric exam: Present: normal affect, normal mood Skin exam: Present: warm, dry, intact. Absent: cyanosis, diaphoretic Course Vital Signs 08/26/23 08/26/23 12:49 13:27 Temperature 97.7 F Pulse Rate 66 84 Respiratory 18 18 Rate Blood Pressure 141/70 131/82 O2 Sat by Pulse 97 98 Oximetry Medical Decision Making - Medical Decision Making Was pt. sent in by a medical professional or institution (JIM Neil, INHALATION THERAPY TEACHER, urgent care, hospital, or longterm...) When possible be specific @ -No Did you speak to anyone other than the patient for history (EMS, parent, family, police, friend...)? What history was obtained from this source @ -No Did you review nursing and triage notes (agree or disagree)? Why? @ -I reviewed and agree with nursing and triage notes Were old charts reviewed (outside hosp., previous admission, EMS record, old EKG, old radiological studies, urgent care reports/EKG's, longterm records)? Report findings @ -No old charts were reviewed Differential Diagnosis: musculoskeletal arm pain, anginal equivalent, ID EKG interpreted by me (3pts min.). @ -[Sinus rhythm rate of 76, RI interval 125, QRS duration 82, QTc [address] segment changes. X-rays interpreted by me (1pt min.). @ -None done CT interpreted by me (1pt min.). @ -None done U/S interpreted by me (1pt. min.). @ -None done What testing was considered but not performed or refused? (CT, X-rays, U/S, labs)? Why? @ -None What meds were considered but not given or refused? Why? @ -None Did you discuss the management of the patient with other professionals (professionals i.e. Dr., PA, INHALATION THERAPY TEACHER, lab, RT, psych nurse, psych social worker, car scrubber, teacher, chief innovation officer, dependency case manager)? Give summary @ -No Was smoking cessation discussed for >3mins.? @ -No Was critical care preformed (if so, how long)? @ -No Were there social determinants of health that impacted care today? How? (Homelessness, low income, unemployed, alcoholism, drug addiction, transportation, low edu. Level, literacy, decrease access to med. care, intermediate, rehab)? @ -No Was there de-escalation of care discussed even if they declined (Discuss DNR or withdrawal of care, Hospice)? DNR status @ -No What co-morbidities impacted this encounter? (DM, HTN, Smoking, COPD, CAD, Cancer, CVA, ARF, Chemo, Hep., AIDS, mental health diagnosis, sleep apnea, morbid obesity)? @ -None Was patient admitted / discharged? Hospital course, mention meds given and route, prescriptions, significant lab abnormalities, going to OR and other pertinent info. @ -This is an otherwise healthy 62-year-old female who had an episode of left arm pain which she thought could possibly be related to her heart this occurred yesterday. It was no typical features of angina otherwise. Pain is resolved at this time. Patient is quite active and does not experience any exertional chest pain normally. EKG is sinus rhythm without ST segment elevation. Patient presented for hope that she could receive blood testing to prove that she did not have a heart attack. This was performed and her CBC, CMP, and troponin testing was negative. Patient reassured and will monitor symptoms and follow-up with her primary care provider. Undiagnosed new problem with uncertain prognosis? @ -No Drug Therapy requiring intensive monitoring for toxicity (Heparin, Nitro, Insulin, Cardizem)? @ -No Were any procedures done? @ -No Diagnosis/symptom? @ -Musculoskeletal left arm pain Acute, or Chronic, or Acute on Chronic? @ -Acute Uncomplicated (without systemic symptoms) or Complicated (systemic symptoms)? @ -Default Side effects of treatment? @ -No Exacerbation, Progression, or Severe Exacerbation? @ -No Poses a threat to life or bodily function? How? (Chest pain, USA, ID, pneumonia, PE, COPD, DKA, ARF, appy, cholecystitis, CVA, Diverticulitis, Homicidal, Suicidal, threat to staff... and all critical care pts) @ -No - Lab Data Result diagrams: 08/26/23 13:26 08/26/23 13:26 Lab Results 08/26/23 08/26/23 08/26/23 Range/Units 13:26 13:26 13:26 WBC 5.0 (3.8-10.6) k/uL RBC 4.23 (3.80-5.40) m/uL Hgb 12.7 (11.4-16.0) gm/dL Hct 38.3 (34.0-46.0) % MCV 90.6 (80.0-100.0) fL MCH 30.1 (25.0-35.0) pg MCHC 33.2 (31.0-37.0) g/dL RDW 13.0 (11.5-15.5) % Plt Count 315 (150-450) k/uL MPV 7.6 Neutrophils % 59 % Lymphocytes % 31 % Monocytes % 5 % Eosinophils % 1 % Basophils % 1 % Neutrophils # 3.0 (1.3-7.7) k/uL Lymphocytes # 1.5 (1.0-4.8) k/uL Monocytes # 0.3 (0-1.0) k/uL Eosinophils # 0.1 (0-0.7) k/uL Basophils # 0.0 (0-0.2) k/uL PT 10.3 (10.0-12.5) sec INR 0.9 (<1.2) APTT 26.0 (22.0-30.0) sec Sodium 138 (137-145) mmol/L Potassium 4.4 (3.5-5.1) mmol/L Chloride 107 (98-107) mmol/L Carbon Dioxide 26 (22-30) mmol/L Anion Gap 5 mmol/L BUN 11 (7-17) mg/dL Creatinine 0.49 L (0.52-1.04) mg/dL Est GFR (CKD-EPI)AfAm >90 (>60 ml/min/1.73 sqM) Est GFR (CKD-EPI)NonAf >90 (>60 ml/min/1.73 sqM) Glucose 88 (74-99) mg/dL Calcium 9.2 (8.4-10.2) mg/dL Magnesium 1.8 (1.6-2.3) mg/dL Total Bilirubin 0.6 (0.2-1.3) mg/dL AST 28 (14-36) U/L ALT 17 (4-34) U/L Alkaline Phosphatase 36 L (38-126) U/L Troponin I (0.000-0.034) ng/mL Total Protein 6.8 (6.3-8.2) g/dL Albumin 4.4 (3.5-5.0) g/dL 08/26/23 Range/Units 13:26 WBC (3.8-10.6) k/uL RBC (3.80-5.40) m/uL Hgb (11.4-16.0) gm/dL Hct (34.0-46.0) % MCV (80.0-100.0) fL MCH (25.0-35.0) pg MCHC (31.0-37.0) g/dL RDW (11.5-15.5) % Plt Count (150-450) k/uL MPV Neutrophils % % Lymphocytes % % Monocytes % % Eosinophils % % Basophils % % Neutrophils # (1.3-7.7) k/uL Lymphocytes # (1.0-4.8) k/uL Monocytes # (0-1.0) k/uL Eosinophils # (0-0.7) k/uL Basophils # (0-0.2) k/uL PT (10.0-12.5) sec INR (<1.2) APTT (22.0-30.0) sec Sodium (137-145) mmol/L Potassium (3.5-5.1) mmol/L Chloride (98-107) mmol/L Carbon Dioxide (22-30) mmol/L Anion Gap mmol/L BUN (7-17) mg/dL Creatinine (0.52-1.04) mg/dL Est GFR (CKD-EPI)AfAm (>60 ml/min/1.73 sqM) Est GFR (CKD-EPI)NonAf (>60 ml/min/1.73 sqM) Glucose (74-99) mg/dL Calcium (8.4-10.2) mg/dL Magnesium (1.6-2.3) mg/dL Total Bilirubin (0.2-1.3) mg/dL AST (14-36) U/L ALT (4-34) U/L Alkaline Phosphatase (38-126) U/L Troponin I <0.012 (0.000-0.034) ng/mL Total Protein (6.3-8.2) g/dL Albumin (3.5-5.0) g/dL Disposition Clinical Impression: Muscle strain Disposition: HOME SELF-CARE Condition: Good Instructions (If sedation given, give patient instructions): Muscle Strain (ED) Is patient prescribed a controlled substance at d/c from ED?: No Referrals: Sage Shine MD [Primary Care Provider] - 1-2 days Time of Disposition: 14:09
[2023-08-26 13:38] LABS: Basophils % (A) 1 %; Eosinophils # (A) 0.1 k/uL (0-0.7); Eosinophils % (A) 1 %; HCT 38.3 % (34.0-46.0); HGB 12.7 gm/dL (11.4-16.0); Lymphocytes # (A) 1.5 k/uL (1.0-4.8); Lymphocytes % (A) 31 %; MCH 30.1 pg (25.0-35.0); MCHC 33.2 g/dL (31.0-37.0); MCV 90.6 fL (80.0-100.0); Mean Platelet Volume 7.6; Monocytes # (A) 0.3 k/uL (0-1.0); Monocytes % (A) 5 %; Neutrophils % (A) 59 %; Platelet Count 315 k/uL (150-450); RBC 4.23 m/uL (3.80-5.40)
[2023-08-26 13:52] LABS: INR 0.9 (<1.2); Prothrombin Time 10.3 sec (10.0-12.5)
[2023-08-26 13:55] LABS: ALT 17 U/L (4-34); AST 28 U/L (14-36); African American GFR (CKD) >90 (>60 ml/min/1.73 sqM); Albumin 4.4 g/dL (3.5-5.0); Alkaline Phosphatase 36 U/L (38-126); Anion Gap 5 mmol/L; Blood Urea Nitrogen 11 mg/dL (7-17); Calcium 9.2 mg/dL (8.4-10.2); Carbon Dioxide 26 mmol/L (22-30); Chloride 107 mmol/L (98-107); Glucose 88 mg/dL (74-99); Magnesium 1.8 mg/dL (1.6-2.3); Non-African American GFR(CKD) >90 (>60 ml/min/1.73 sqM); Potassium 4.4 mmol/L (3.5-5.1); Sodium 138 mmol/L (137-145); Total Bilirubin 0.6 mg/dL (0.2-1.3); Total Protein 6.8 g/dL (6.3-8.2)
[2023-08-26 14:39] VITALS: BP 122/71; PULSE 83
== END 2023-08-26 14:39 | disposition home or self-care (01) ==
LOC: EC 12:47
DX: S46.912A Strain of unspecified muscle, fascia and tendon at shoulder and upper arm level, left arm, initial encounter (principal); Z87.891 Personal history of nicotine dependence; Z88.5 Allergy status to narcotic agent; X58.XXXA Exposure to other specified factors, initial encounter
CPT/HCPCS: 36415; 80053; 83735; 84484; 85025; 85610; 85730; 93005; 99283